=== PATIENT | female | born 1930 | race Caucasian/White ===

== ENCOUNTER 2022-06-19 14:04 | Emergency (ER) | payer OTHER ==
[~2022-06-19] VITALS: Ht 152.4 cm; Wt 45.0 kg
[2022-06-19 16:12] LABS: CHLORIDE 112 mEq/L (98-107)
[2022-06-19 16:15] LABS: BASOPHILS % 0.4 % (0.0-2.0); EOSINOPHILS % 1.4 % (0.0-5.0); HEMOGLOBIN. 10.4 g/dL (12.0-16.0); LYMPHOCYTES % 15.7 % (20.0-50.0); MEAN CORPUSCULAR HEMOGLOBIN 26.8 pg (28.0-32.0); MEAN CORPUSCULAR VOLUME 85.2 fL (81.0-99.0); MEAN PLATELET VOLUME 6.9 fl (7.4-10.4); MONOCYTES % 6.4 % (2.0-8.0); NEUTROPHILS % 76.1 % (40.0-76.0); PLATELET 287 x1000/uL (130-400); RED BLOOD CELL COUNT 3.88 mill/uL (4.2-5.4); RED CELL DISTRIBUTION WIDTH 17.3 % (11.6-14.6)
[2022-06-19 17:00] VITALS: BP 117/67
[2022-06-19] MEDS ORDERED: DEXTL MT (17:33)
== END 2022-06-19 18:00 | disposition home or self-care (01) ==
LOC: ER 14:04
DX: R05.9 Cough, unspecified (principal); M79.89 Other specified soft tissue disorders; G89.29 Other chronic pain; I10 Essential (primary) hypertension; F03.90 Unspecified dementia, unspecified severity, without behavioral disturbance, psychotic disturbance, mood disturbance, and anxiety; I48.91 Unspecified atrial fibrillation; Z79.899 Other long term (current) drug therapy
CPT/HCPCS: 36415; 71045; 80053; 83880; 84484; 85025; 93005; 99285

== ENCOUNTER 2022-08-02 11:41 | Emergency (ER) | payer OTHER ==
[~2022-08-02] VITALS: Ht 160 cm; Wt 50.0 kg
[~2022-08-02 11:41] MED LIST: DEXTL MT
[2022-08-02 12:32] LABS: BASOPHILS % 0.4 % (0.0-2.0); EOSINOPHILS % 0.9 % (0.0-5.0); HEMATOCRIT. 35.8 % (36.0-48.0); HEMOGLOBIN. 11.5 g/dL (12.0-16.0); LYMPHOCYTES % 17.3 % (20.0-50.0); MEAN CORPUSCULAR HEMOGLOBIN 25.3 pg (28.0-32.0); MEAN CORPUSCULAR VOLUME 78.4 fL (81.0-99.0); MEAN PLATELET VOLUME 7.2 fl (7.4-10.4); MONOCYTES % 5.1 % (2.0-8.0); NEUTROPHILS % 76.3 % (40.0-76.0); PLATELET 284 x1000/uL (130-400); RED BLOOD CELL COUNT 4.56 mill/uL (4.2-5.4)
[2022-08-02 12:41] LABS: D-DIMER 1.51 mg/L FEU (<0.50); INR 1.1; PROTHROMBIN TIME 11.5 sec (9.6-11.0)
[2022-08-02 12:44] LABS: CHLORIDE 106 mEq/L (98-107)
[2022-08-02] MEDS ORDERED: FUROSEMIDE 20MG/2ML VIAL IVP ONE (13:30)
[2022-08-02] MEDS ORDERED: FUROSEMIDE 40MG/4ML VIAL IVP NR (15:15)
[2022-08-02] MEDS ORDERED: IOHEXOL-350 100 ML BOTTLE ONE (15:56)
[2022-08-02 16:45] VITALS: BP 122/82
== END 2022-08-02 17:21 | disposition home or self-care (01) ==
LOC: ER 11:41 → CANBEDREQ 08-03 02:00
DX: J98.09 Other diseases of bronchus, not elsewhere classified (principal); R55 Syncope and collapse; I10 Essential (primary) hypertension; Z86.39 Personal history of other endocrine, nutritional and metabolic disease
CPT/HCPCS: 36415; 71045; 71275; 80053; 83605; 83690; 83880; 84145; 84484; 85025; 85379; 85610; 87040; 93005; 96374; 99285; J1940; Q9967